=== PATIENT | female | born 1990 | race Caucasian/White ===

== ENCOUNTER 2020-01-06 03:07 | Inpatient (IN) | payer BC ==
[2020-01-06] MEDS ORDERED: Methylergonovine 0.2 MG/1 ML Amp IM PRN (03:36)
[2020-01-06] MEDS ORDERED: Carboprost Tromethamine 250 MCG/1 ML Amp IM PRN (03:36)
[2020-01-06] MEDS ORDERED: Tranexamic Acid 1,000 MG in Sodium Chloride 0.9% 100 ML IV PRN (03:36)
[2020-01-06] MEDS ORDERED: Butorphanol 1 MG/ML SDV IVPUSH PRN (03:36)
[2020-01-06] MEDS ORDERED: Lidocaine 1% 50 ML MDV INJECT PRN (03:36)
[2020-01-06] MEDS ORDERED: Sodium Chloride 0.9% 10 ML SDV IV PRN (03:36)
[2020-01-06] MEDS ORDERED: Sodium Chloride 0.9% 10 ML Syringe FLUSH PRN (03:36)
[2020-01-06] MEDS ORDERED: Sodium Chloride 0.9% 2.5 ML Syringe FLUSH PRN (03:36)
[2020-01-06] MEDS ORDERED: Nalbuphine 10 MG/1 ML Vial IVPUSH PRN (03:36)
[2020-01-06] MEDS ORDERED: Misoprostol 200 MCG Tab PO PRN (03:36)
[2020-01-06] MEDS ORDERED: Water For Irrigation,Sterile 1,000 ML Container IRR PRN (03:36)
[2020-01-06] MEDS ORDERED: Oxytocin/0.9 % Sodium Chloride 30 UNIT/500 ML BAG IV SCH (03:45)
[2020-01-06] MEDS: Lactated Ringers 1,000 ML IV SCH ×3 (03:51→04:57)
[2020-01-06] MEDS ORDERED: Ampicillin 2 GM in Sodium Chloride 0.9% 100 ML IV ONE (04:00)
[2020-01-06] MEDS ORDERED: Ropivacaine HCl/PF 100 ML ONE (04:18)
[2020-01-06] MEDS ORDERED: fentaNYL 100 MCG/2 ML SDV ONE (04:18)
--- NOTE | 2020-01-06 04:39 | PCM.PREANE ---
Preanesthetic Assessment - Anesthesia/Transfusion/Family Hx Anesthesia History: Prior Anesthesia Without Reaction Family History of Anesthesia Reaction: No Transfusion History: No Prior Transfusion(s) Intubation History: Unknown - Physical Assessment NPO Status Date: 01/06/20 NPO Status Time: 00:05 Height: 1.63 m Weight: 77.111 kg - Lab Values: Laboratory Last Values WBC 11.60 K/uL (4.0-11.0) H 01/06/20 03:45 RBC 4.33 M/uL (4.30-5.90) 01/06/20 03:45 Hgb 10.5 g/dL (12.0-16.0) L 01/06/20 03:45 Hct 33.8 % (36.0-46.0) L 01/06/20 03:45 MCV 78.1 fL (80.0-98.0) L 01/06/20 03:45 MCH 24.2 pg (27.0-32.0) L 01/06/20 03:45 MCHC 31.1 g/dL (31.0-37.0) 01/06/20 03:45 RDW Std Deviation 43.0 fl (28.0-62.0) 01/06/20 03:45 RDW Coeff of Yady 15 % (11.0-15.0) 01/06/20 03:45 Plt Count 189 K/uL (150-400) 01/06/20 03:45 MPV 12.50 fL (7.40-12.00) H 01/06/20 03:45 Nucleated RBC % 0.0 /100WBC 01/06/20 03:45 Nucleated RBCs # 0 K/uL 01/06/20 03:45 Membrane Rupture POSITIVE 01/06/20 03:20 - Allergies Allergies/Adverse Reactions: Allergies Allergy/AdvReac Type Severity Reaction Status Date / Time No Known Allergies Allergy Verified 01/06/20 03:33 - Acknowledgements Anesthesia Type Planned: Epidural Pt an Appropriate Candidate for the Planned Anesthesia: Yes Alternatives and Risks of Anesthesia Discussed w Pt/Guardian: Yes Pt/Guardian Understands and Agrees with Anesthesia Plan: Yes PreAnesthesia Questionnaire HEENT History: Reports: Impaired Vision [place] History: Reports: Musculoskeletal History: Reports: None Psychiatric History: Reports: Anxiety, Depression - Past Surgical History HEENT Surgical History: Reports: Oral Surgery Musculoskeletal Surgical History: Reports: Other (See Below) Other Musculoskeletal Surgeries/Procedures:: surgery on right index finger - SUBSTANCE USE Smoking Status *Q: Former Smoker Tobacco Use Within Last Twelve Months: Cigarettes Recreational Drug Use History: No - HOME MEDS Home Medications: Home Meds Escitalopram Oxalate [Lexapro] 20 mg PO DAILY 01/06/20 [History] Terconazole 01/06/20 [History] valACYclovir HCl [Valtrex] 1 tab PO BID 01/06/20 [History] - CURRENT (IN HOUSE) MEDS Current Meds: Current Medications Butorphanol Tartrate (Stadol) 1 mg IVPUSH Q1H PRN PRN Reason: Pain Carboprost Tromethamine (Hemabate Ds) 250 mcg IM ASDIRECTED PRN PRN Reason: Post Hemorrhage Ampicillin Sodium 1 gm/ Sodium (Chloride) 50 mls @ 100 mls/hr IV Q4H [facility] Lactated Ringer's (Ringers, Lactated) 1,000 mls @ 150 mls/hr IV ASDIRECTED [facility] Last Admin: 01/06/20 04:29 Dose: 999 mls/hr Oxytocin/Sodium Chloride (Oxytocin 30 Unit/500 Ml-Ns) 30 unit in 500 mls @ 999 mls/hr IV TITRATE [facility] Tranexamic Acid 1,000 mg/ (Sodium Chloride) 110 mls @ 660 mls/hr IV ONETIME PRN PRN Reason: Bleeding Lidocaine HCl (Xylocaine 1%) 50 ml INJECT ONETIME PRN PRN Reason: Laceration repair Methylergonovine Maleate (Methergine) 0.2 mg IM ASDIRECTED PRN PRN Reason: Post Hemorrhage Misoprostol (Cytotec) 200 mcg PO ONETIME PRN PRN Reason: Post Hemorrhage Nalbuphine HCl (Nubain) 10 mg IVPUSH Q1H PRN PRN Reason: Pain (severe 7-10) Sodium Chloride (Saline Flush) 10 ml FLUSH ASDIRECTED PRN PRN Reason: Keep Vein Open Sodium Chloride (Saline Flush) 2.5 ml FLUSH ASDIRECTED PRN PRN Reason: Keep Vein Open Sodium Chloride (Normal Saline) 10 ml IV ASDIRECTED PRN PRN Reason: IV Use Sterile Water (Sterile Water For Irrigation) 1,000 ml IRR ASDIRECTED PRN PRN Reason: delivery Discontinued Medications Fentanyl (Sublimaze) Confirm Administered Dose 100 mcg .ROUTE .STK-MED ONE Stop: 01/06/20 04:19 Ampicillin Sodium 2 gm/ Sodium (Chloride) 100 mls @ 200 mls/hr IV ONETIME ONE Stop: 01/06/20 04:29 Last Admin: 01/06/20 03:54 Dose: 200 mls/hr Ropivacaine (Naropin 0.2%) Confirm Administered Dose 100 mls @ as directed .ROUTE .STK-MED ONE Stop: 01/06/20 04:19
--- NOTE | 2020-01-06 04:43 | PCM.PRNOTE ---
- Free Text/Narrative Note: Anes NOte Patient requests epidural for L&D. Sitting position, Level L3-L4 midline approach. Sterile technique. Chloraprep scrub to lumbar area. Sterile fenestrated drape applied. Epidural space easily achieved single attempt with ease using WILLARD technique. WILLARD at 3 cm. Cath threaded 5 cm with ease. Cath secured a tskin at 9 cm using sterile clear adhesive dressing. 0425 Test 3 cc 1.5% lido with epi negative. 0430 Load 10 cc 0.2% ropivicaine with 1 mcg cc fentanyl in slow divided doses. 0435 Pump started with 90 cc same solution. Rate is 8 cc hr with 6 cc q 20 min prn bolus. Darnell well. Time with patient [id number] Bob Roque CRNA
[2020-01-06] MEDS ORDERED: Bisacodyl 10 MG Supp RECTAL PRN (07:36)
[2020-01-06] MEDS ORDERED: Docusate Sodium 100 MG Cap PO PRN (07:36)
[2020-01-06] MEDS ORDERED: Lanolin 100% Cream 7 GM Tube TOP PRN (07:36)
[2020-01-06] MEDS ORDERED: oxyCODONE 5 MG Tab PO PRN (07:36)
[2020-01-06] MEDS ORDERED: Witch Hazel Medicated Pads 40/Jar TOP PRN (07:36)
[2020-01-06] MEDS ORDERED: Ibuprofen 800 MG Tab PO PRN (07:36)
[2020-01-06] MEDS ORDERED: Benzocaine/Menthol 20%-0.5% Spray 78 GM Cannister TOP PRN (07:36)
--- NOTE | 2020-01-06 07:41 | PCM.DEL ---
L & D Note - General Info Date of Service: 01/06/20 Mother's Due Date: 01/09/20 - Delivery Note Labor: Spontaneous Delivery Outcome: Livebirth Infant Delivery Method: Spontaneous Vaginal Delivery-Single Presentation: Vertex Nuchal Cord: None Anesthesia Type: Epidural Amniotic Fluid Description: Meconium Stained Episiotomy Type: None Laceration: None Placenta: Intact, Spontaneous Cord: 3 Vessels Resuscitation Needed: Yes : Suctioned, Stimulated, Warmed, Warmer Used Score 1 min: 7 Score 5 min: 9 - General Info Date of Service: 01/06/20 - Patient Data Weight - Most Recent: 77.111 kg Lab Results Last 24 Hours: Laboratory Results - last 24 hr 01/06/20 01/06/20 01/06/20 Range/Units 03:20 03:45 03:45 WBC 11.60 H (4.0-11.0) K/uL RBC 4.33 (4.30-5.90) M/uL Hgb 10.5 L (12.0-16.0) g/dL Hct 33.8 L (36.0-46.0) % MCV 78.1 L (80.0-98.0) fL MCH 24.2 L (27.0-32.0) pg MCHC 31.1 (31.0-37.0) g/dL RDW Std Deviation 43.0 (28.0-62.0) fl RDW Coeff of Yady 15 (11.0-15.0) % Plt Count 189 (150-400) K/uL MPV 12.50 H (7.40-12.00) fL Nucleated RBC % 0.0 /100WBC Nucleated RBCs # 0 K/uL Membrane Rupture POSITIVE Blood Type O POSITIVE Antibody Screen NEGATIVE Med Orders - Current: Current Medications Acetaminophen (Tylenol Extra Strength) 1,000 mg PO Q6H PRN PRN Reason: Pain Benzocaine/Menthol (Dermoplast Pain Relief 20%-0.5% [place]) 78 gm TOP ASDIRECTED PRN PRN Reason: Perineal Comfort Measure Bisacodyl (Dulcolax) 10 mg RECTAL ONETIME PRN PRN Reason: Constipation Butorphanol Tartrate (Stadol) 1 mg IVPUSH Q1H PRN PRN Reason: Pain Carboprost Tromethamine (Hemabate Ds) 250 mcg IM ASDIRECTED PRN PRN Reason: Post Hemorrhage Docusate Sodium (Colace) 100 mg PO BID PRN PRN Reason: Constipation Emollient Ointment (Lansinoh Hpa) 0 gm TOP ASDIRECTED PRN PRN Reason: Sore Nipples Ampicillin Sodium 1 gm/ Sodium (Chloride) 50 mls @ 100 mls/hr IV Q4H [facility] Lactated Ringer's (Ringers, Lactated) 1,000 mls @ 150 mls/hr IV ASDIRECTED [facility] Last Admin: 01/06/20 04:57 Dose: 150 mls/hr Oxytocin/Sodium Chloride (Oxytocin 30 Unit/500 Ml-Ns) 30 unit in 500 mls @ 999 mls/hr IV TITRATE [facility] Last Admin: 01/06/20 06:58 Dose: 999 mls/hr Tranexamic Acid 1,000 mg/ (Sodium Chloride) 110 mls @ 660 mls/hr IV ONETIME PRN PRN Reason: Bleeding Ibuprofen (Motrin) 800 mg PO Q8H PRN PRN Reason: Pain Lidocaine HCl (Xylocaine 1%) 50 ml INJECT ONETIME PRN PRN Reason: Laceration repair Methylergonovine Maleate (Methergine) 0.2 mg IM ASDIRECTED PRN PRN Reason: Post Hemorrhage Misoprostol (Cytotec) 200 mcg PO ONETIME PRN PRN Reason: Post Hemorrhage Nalbuphine HCl (Nubain) 10 mg IVPUSH Q1H PRN PRN Reason: Pain (severe 7-10) Non-Formulary Medication (Escitalopram Oxalate) 20 mg PO DAILY [facility] Oxycodone HCl (Oxycodone) 5 mg PO Q2H PRN PRN Reason: Pain Sodium Chloride (Saline Flush) 10 ml FLUSH ASDIRECTED PRN PRN Reason: Keep Vein Open Sodium Chloride (Saline Flush) 2.5 ml FLUSH ASDIRECTED PRN PRN Reason: Keep Vein Open Sodium Chloride (Normal Saline) 10 ml IV ASDIRECTED PRN PRN Reason: IV Use Sterile Water (Sterile Water For Irrigation) 1,000 ml IRR ASDIRECTED PRN PRN Reason: delivery Last Admin: 01/06/20 07:03 Dose: 1,000 ml Witch Becky (Tucks) 1 pad TOP ASDIRECTED PRN PRN Reason: comfort care Discontinued Medications Fentanyl (Sublimaze) Confirm Administered Dose 100 mcg .ROUTE .STK-MED ONE Stop: 01/06/20 04:19 Last Admin: 01/06/20 04:47 Dose: Not Given Ampicillin Sodium 2 gm/ Sodium (Chloride) 100 mls @ 200 mls/hr IV ONETIME ONE Stop: 01/06/20 04:29 Last Admin: 01/06/20 03:54 Dose: 200 mls/hr Ropivacaine (Naropin 0.2%) Confirm Administered Dose 100 mls @ as directed .ROUTE .STK-MED ONE Stop: 01/06/20 04:19 Last Admin: 01/06/20 04:46 Dose: Not Given - Problem List & Annotations (1) Vaginal delivery SNOMED Code(s): 612308631 Code(s): O80 - ENCOUNTER FOR FULL-TERM UNCOMPLICATED DELIVERY Status: Acute Current Visit: No - Problem List Review Problem List Initiated/Reviewed/Updated: Yes - My Orders Last 24 Hours: My Active Orders 01/06/20 03:11 Patient Status [ADT] Routine 01/06/20 03:36 Heart Tones [RC] CONTINUOUS Non Stress Test [RC] PER UNIT ROUTINE May Shower [RC] ASDIRECTED Notify Provider [RC] PRN Up ad Valeria [RC] ASDIRECTED Vaginal Exam [RC] PRN Vital Signs [RC] PER UNIT ROUTINE Butorphanol [Stadol] 1 mg IVPUSH Q1H PRN Carboprost Tromethamine [Hemabate DS] 250 mcg IM ASDIRECTED PRN Lidocaine 1% [Xylocaine 1%] 50 ml INJECT ONETIME PRN Methylergonovine [Methergine] 0.2 mg IM ASDIRECTED PRN Nalbuphine [Nubain] 10 mg IVPUSH Q1H PRN Sodium Chloride 0.9% [Normal Saline] 10 ml IV ASDIRECTED PRN Sodium Chloride 0.9% [Saline Flush] 10 ml FLUSH ASDIRECTED PRN Sodium Chloride 0.9% [Saline Flush] 2.5 ml FLUSH ASDIRECTED PRN Tranexamic Acid [Cyklokapron] 1,000 mg Sodium Chloride 0.9% [Normal Saline] 100 ml IV ONETIME Water For Irrigation,Sterile [Sterile Water for Irrigation] 1,000 ml IRR ASDIRECTED PRN miSOPROStoL [Cytotec] 200 mcg PO ONETIME PRN Scalp Electrode [WOMSER] Per Unit Routine Peripheral IV Insertion Adult [OM.PC] Routine Resuscitation Status Routine 01/06/20 03:45 RPR (SYPHILIS SERO) W/ RFLX [REF] Routine Lactated Ringers [Ringers, Lactated] 1,000 ml IV ASDIRECTED Oxytocin/0.9 % Sodium Chloride [Oxytocin 30 Unit/500 ML-NS] 30 unit in 500 ml IV TITRATE 01/06/20 07:36 Patient Status [ADT] Routine May Shower [RC] ASDIRECTED Notify Provider Vital Signs [RC] ASDIRECTED Up ad Valeria [RC] ASDIRECTED Vital Signs [RC] PER UNIT ROUTINE Acetaminophen [Tylenol Extra Strength] 1,000 mg PO Q6H PRN Benzocaine/Menthol [Dermoplast Pain Relief 20%-0.5% [place]] 78 gm TOP ASDIRECTED PRN Docusate Sodium [Colace] 100 mg PO BID PRN Ibuprofen [Motrin] 800 mg PO Q8H PRN Lanolin [Lansinoh HPA] See Dose Instructions TOP ASDIRECTED PRN bisacodyL [Dulcolax] 10 mg RECTAL ONETIME PRN oxyCODONE 5 mg PO Q2H PRN witch Becky [Tucks] 1 pad TOP ASDIRECTED PRN Assess Lochia [WOMSER] Per Unit Routine Assess Uterine Involution [WOMSER] Per Unit Routine Breast Pump [WOMSER] Per Unit Routine Ice Therapy [OM.PC] Per Unit Routine Perineal Care [OM.PC] Per Unit Routine Peripheral IV Discontinue [OM.PC] Routine Sitz Bath [OM.PC] Per Unit Routine 01/06/20 07:37 Cooling Warming Measures [RC] ASDIRECTED BLOOD GAS VENOUS UMBILICAL [BG] Routine 01/06/20 08:00 Ampicillin 1 gm Sodium Chloride 0.9% [Normal Saline] 50 ml IV Q4H 01/06/20 09:00 Escitalopram Oxalate 20 mg PO DAILY 01/06/20 Breakfast Regular Diet [DIET] 01/07/20 05:11 HEMOGLOBIN/HEMATOCRIT,HH [HEME] Timed - Assessment Assessment:: 29yo s/p at 39w4d - Plan Plan:: Admit to unit for routine care. GBS+, did not receive adequate prophylaxis. Patient aware infant may be monitored for 48 hours . Depression/anxiety, continue home medication.
[2020-01-06] MEDS ORDERED: Escitalopram 10 MG Tab PO SCH (09:00)
[2020-01-06] MEDS: Acetaminophen 500 MG Tab PO PRN (15:26)
--- NOTE | 2020-01-06 15:35 | OR ---
SURGEON: Mell Mchugh MD DATE OF PROCEDURE: 01/06/2020 PREOPERATIVE DIAGNOSES: 1. A 29-year-old G3, P2-0-0-2 at 39 weeks and 4 days gestation. 2. Labor. 3. GBS positive. POSTOPERATIVE DIAGNOSES: 1. 29-year-old, G3, P3-0-0-3, status post spontaneous vaginal delivery at 39 weeks and 4 days gestation. 2. Group B Streptococcus positive. PROCEDURE: Spontaneous vaginal delivery. ANESTHESIA: Epidural. PRIMARY SURGEON: Mell Mchugh MD ESTIMATED BLOOD LOSS: 200 mL. FINDINGS: Live male infant in cephalic presentation. score 7 and 9 at one and five minutes respectively. Thick meconium. Weight pending. Venous blood gas pending. Placenta intact with 3-vessel cord. No perineal lacerations. INDICATIONS: This is a 29-year-old G3, P2-0-0-2, who presented at 39 weeks and 4 days gestation complaining of contractions and leakage of fluid. AmniSure was positive on presentation. Her cervix was found to be 6 cm dilated. She received an epidural for pain control. She progressed to complete cervical dilation. She received 1 dose of Ampicillin prior to delivery. PROCEDURE IN DETAIL: I presented to the room, the patient was complete and +1 station. She pushed and delivered a live male infant. Head was delivered followed quickly by the shoulders and remainder of the body. The infant was placed on maternal abdomen. After approximately 60 seconds, cord was clamped and cut. Perineum was inspected and no lacerations were noted. At 29 minutes post delivery, the placenta delivered via the De Leon-Trejo maneuver intact and with 3-vessel cord. Fundus was firm below the umbilicus with minimal bleeding. The patient and tolerated the delivery well. [id number] / MODL /[id number] JOSHUA
[2020-01-07] MEDS: Acetaminophen 500 MG Tab PO PRN (05:15)
[2020-01-07] MEDS: Ampicillin 1 GM in Sodium Chloride 0.9% 50 ML IV SCH (08:40)
--- NOTE | 2020-01-07 08:47 | PCM.PNPP ---
- General Info Date of Service: 01/07/20 Functional Status: Reports: Pain Controlled, Tolerating Diet, Ambulating, Urinating - Review of Systems General: Denies: Fever, Weakness, Fatigue Pulmonary: Denies: Shortness of Breath Cardiovascular: Denies: Chest Pain, Palpitations, Lightheadedness Gastrointestinal: Denies: Abdominal Pain, Nausea, Vomiting Genitourinary: Denies: Flank Pain Skin: Reports: No Symptoms Neurological: Reports: No Symptoms Psychiatric: Reports: No Symptoms - General Info Date of Service: 01/07/20 - Patient Data Vital Signs - Most Recent: Last Vital Signs Temp 35.8 C L 01/07/20 04:53 Pulse 74 01/07/20 04:53 Resp 15 01/07/20 04:53 BP 104/78 01/07/20 06:30 Pulse Ox 95 01/07/20 04:53 Weight - Most Recent: 77.111 kg Lab Results - Last 24 Hours: Laboratory Results - last 24 hr 01/07/20 Range/Units 05:16 Hgb 10.4 L (12.0-16.0) g/dL Hct 34.3 L (36.0-46.0) % Med Orders - Current: Current Medications Acetaminophen (Tylenol Extra Strength) 1,000 mg PO Q6H PRN PRN Reason: Pain Last Admin: 01/07/20 05:15 Dose: 1,000 mg Benzocaine/Menthol (Dermoplast Pain Relief 20%-0.5% [place]) 78 gm TOP ASDIRECTED PRN PRN Reason: Perineal Comfort Measure Last Admin: 01/06/20 08:53 Dose: 1 spray Bisacodyl (Dulcolax) 10 mg RECTAL ONETIME PRN PRN Reason: Constipation Butorphanol Tartrate (Stadol) 1 mg IVPUSH Q1H PRN PRN Reason: Pain Carboprost Tromethamine (Hemabate Ds) 250 mcg IM ASDIRECTED PRN PRN Reason: Post Hemorrhage Docusate Sodium (Colace) 100 mg PO BID PRN PRN Reason: Constipation Emollient Ointment (Lansinoh Hpa) 0 gm TOP ASDIRECTED PRN PRN Reason: Sore Nipples Last Admin: 01/06/20 08:53 Dose: 1 gm Escitalopram Oxalate (Lexapro) 20 mg PO DAILY [facility] Last Admin: 01/06/20 08:50 Dose: 20 mg Ampicillin Sodium 1 gm/ Sodium (Chloride) 50 mls @ 100 mls/hr IV Q4H [facility] Last Admin: 01/07/20 08:40 Dose: Not Given Lactated Ringer's (Ringers, Lactated) 1,000 mls @ 150 mls/hr IV ASDIRECTED [facility] Last Admin: 01/06/20 04:57 Dose: 150 mls/hr Oxytocin/Sodium Chloride (Oxytocin 30 Unit/500 Ml-Ns) 30 unit in 500 mls @ 999 mls/hr IV TITRATE [facility] Last Admin: 01/06/20 06:58 Dose: 999 mls/hr Tranexamic Acid 1,000 mg/ (Sodium Chloride) 110 mls @ 660 mls/hr IV ONETIME PRN PRN Reason: Bleeding Ibuprofen (Motrin) 800 mg PO Q8H PRN PRN Reason: Pain Last Admin: 01/06/20 21:52 Dose: 800 mg Lidocaine HCl (Xylocaine 1%) 50 ml INJECT ONETIME PRN PRN Reason: Laceration repair Methylergonovine Maleate (Methergine) 0.2 mg IM ASDIRECTED PRN PRN Reason: Post Hemorrhage Misoprostol (Cytotec) 200 mcg PO ONETIME PRN PRN Reason: Post Hemorrhage Nalbuphine HCl (Nubain) 10 mg IVPUSH Q1H PRN PRN Reason: Pain (severe 7-10) Oxycodone HCl (Oxycodone) 5 mg PO Q2H PRN PRN Reason: Pain Sodium Chloride (Saline Flush) 10 ml FLUSH ASDIRECTED PRN PRN Reason: Keep Vein Open Sodium Chloride (Saline Flush) 2.5 ml FLUSH ASDIRECTED PRN PRN Reason: Keep Vein Open Sodium Chloride (Normal Saline) 10 ml IV ASDIRECTED PRN PRN Reason: IV Use Sterile Water (Sterile Water For Irrigation) 1,000 ml IRR ASDIRECTED PRN PRN Reason: delivery Last Admin: 01/06/20 07:03 Dose: 1,000 ml Witch Becky (Tucks) 1 pad TOP ASDIRECTED PRN PRN Reason: comfort care Last Admin: 01/06/20 08:52 Dose: 1 pad Discontinued Medications Fentanyl (Sublimaze) Confirm Administered Dose 100 mcg .ROUTE .STK-MED ONE Stop: 01/06/20 04:19 Last Admin: 01/06/20 04:47 Dose: Not Given Ampicillin Sodium 2 gm/ Sodium (Chloride) 100 mls @ 200 mls/hr IV ONETIME ONE Stop: 01/06/20 04:29 Last Admin: 01/06/20 03:54 Dose: 200 mls/hr Ropivacaine (Naropin 0.2%) Confirm Administered Dose 100 mls @ as directed .ROUTE .STK-MED ONE Stop: 01/06/20 04:19 Last Admin: 01/06/20 04:46 Dose: Not Given - Infant Interaction Support Person: Significant Other - Recovery Exam Fundal Tone: Firm Fundal Level: 1 Fingerbreadths Below Umbilicus Fundal Placement: Midline Lochia Amount: Scant Lochia Color: Rubra/Red Bladder Status: Voiding - Exam General: Alert, Oriented Lungs: Normal Respiratory Effort Cardiovascular: Regular Rate, Regular Rhythm GI/Abdominal Exam: Normal Bowel Sounds, Soft Extremities: Normal Range of Motion, Pedal Edema (trace). No: Cintia's Sign Skin: Warm, Dry, Intact Neurological: No New Focal Deficit Psy/Mental Status: Alert, Normal Affect, Normal Mood - Problem List & Annotations (1) Vaginal delivery SNOMED Code(s): 508120092 Code(s): O80 - ENCOUNTER FOR FULL-TERM UNCOMPLICATED DELIVERY Status: Acute Current Visit: No - Problem List Review Problem List Initiated/Reviewed/Updated: Yes - My Orders Last 24 Hours: My Active Orders 01/07/20 08:45 Ready for Discharge [RC] PER UNIT ROUTINE - Assessment Assessment:: 29yo s/p at 39w4d PPD 1 - Plan Plan:: Patient doing well overall, would like to go home today. Discharge to home. Follow up at [facility] 6 weeks. Infection and bleeding warnings reviewed.
--- NOTE | 2020-01-07 08:50 | PCM48HPAN ---
Post Anesthesia Note - EVALUATION WITHIN 48HRS OF ANESTHETIC Vital Signs in Normal Range: Yes Patient Participated in Evaluation: Yes Respiratory Function Stable: Yes Airway Patent: Yes Cardiovascular Function Stable: Yes Hydration Status Stable: Yes Pain Control Satisfactory: Yes Nausea and Vomiting Control Satisfactory: Yes Mental Status Recovered: Yes Vital Signs: Last Vital Signs Temp 35.8 C L 01/07/20 04:53 Pulse 74 01/07/20 04:53 Resp 15 01/07/20 04:53 BP 104/78 01/07/20 06:30 Pulse Ox 95 01/07/20 04:53
== END 2020-01-07 09:55 | disposition home or self-care (01) | DRG 560 ==
LOC: MW.OBCHECK 03:07 → MW.OB 03:08 → MW.OBCHECK 03:11 → OBSVTOIN 06:57 → MW.OB 11:16
PROVIDERS: ADMIT Obstetrics & Gynecology; ATTEND Obstetrics & Gynecology
PROC: 10E0XZZ Delivery of Products of Conception, External Approach (ICD-10-PCS; principal; 2020-01-06)
PROC: 3E0R3BZ Introduction of Anesthetic Agent into Spinal Canal, Percutaneous Approach (ICD-10-PCS; 2020-01-06)
PROC: 00HU33Z Insertion of Infusion Device into Spinal Canal, Percutaneous Approach (ICD-10-PCS; 2020-01-06)
DX: O99.344 Other mental disorders complicating childbirth (principal); Z37.0 Single live birth; Z3A.39 39 weeks gestation of pregnancy; F41.9 Anxiety disorder, unspecified; O99.824 Streptococcus B carrier state complicating childbirth; F32.9 Major depressive disorder, single episode, unspecified; O77.0 Labor and delivery complicated by meconium in amniotic fluid; Z87.891 Personal history of nicotine dependence
CPT/HCPCS: 36415; 51702; 59025; 59409; 82803; 84112; 85014; 85018; 85027; 86592; 86593; 86850; 86900; 86901; A9270-GY; J0290; J2590; J2795; J3010; J7050; J7120

== ENCOUNTER 2021-07-27 10:16 | Emergency (ER) | payer BC, OTHER ==
[2021-07-27] MEDS ORDERED: Ondansetron 4 MG/2 ML SDV IVPUSH ONE (10:27)
[2021-07-27] MEDS ORDERED: Sodium Chloride 0.9% 1,000 ML IV ONE (10:27)
--- NOTE | 2021-07-27 11:05 | CR ---
INDICATION: cough TECHNIQUE: Chest 1 view. COMPARISON: None. FINDINGS: Cardiovascular and mediastinum: Heart size and vasculature are normal in caliber and appearance. Mediastinum is within normal limits. Lungs and pleural space: Lungs are clear. No sign of infiltrate or mass. No sign of pleural effusion. No pneumothorax. Bones and soft tissues: No significant findings. IMPRESSION: Unremarkable chest. Dictated by: Akin Blake MD @ 07/27/2021 11:04:24 (Electronically Signed)
[2021-07-27 11:18] LABS: BLOOD UREA NITROGEN,BUN 11 mg/dL (7.0-18.0); CARBON DIOXIDE,CO2 26.6 mmol/L (21.0-32.0); CHLORIDE,CL 103 mmol/L (98-107); GLUCOSE RANDOM 113 mg/dL (74-106); LIPASE 85 U/L (73-393); POTASSIUM,K 3.6 mmol/L (3.5-5.1); SODIUM,NA 142 mmol/L (136-145)
[2021-07-27] MEDS ORDERED: Iopamidol 755 MG/ML 500 ML Multipack Bottle IVPUSH STA (11:59)
[2021-07-27 12:04] LABS: CORONAVIRUS COVID-19 NAA NEGATIVE (NEGATIVE); INFLUENZA A NAA NEGATIVE (NEGATIVE); INFLUENZA B NAA NEGATIVE (NEGATIVE)
--- NOTE | 2021-07-27 12:45 | CT ---
INDICATION: Nausea, vomiting, generalized abdominal pain. TECHNIQUE: CT of the abdomen and pelvis with 100 cc Isovue 370 IV contrast. Coronal and sagittal reconstructions. COMPARISON: None. FINDINGS: Small low-attenuation lesion in the anterior aspect of the hepatic dome is too small to characterize but likely benign (series 201, image 31). The gallbladder, spleen, pancreas, and adrenal glands are negative. No biliary dilation. Hepatic and portal veins are patent. Symmetric enhancement of the kidneys. No hydronephrosis or ureteral dilation. No obstructing urinary calculi identified. The bladder and uterus are normal in appearance. There is a 1.5 cm rim enhancing cystic lesion in the right adnexa which most likely represents a corpus luteum (series 201, image 142). No bowel dilation. Mild amount of formed stool within the proximal colon. The distal colon is decompressed which limits evaluation, however there are no significant signs of inflammation. Negative appendix. Small amount of free fluid in the right adnexa. No intraperitoneal free air. Tiny fat containing umbilical hernia. No lymphadenopathy. The bones are unremarkable. The lung bases are clear. IMPRESSION: 1. No acute findings in the abdomen or pelvis. 2. Probable 1.5 cm corpus luteum in the right ovary with a small amount of adjacent free fluid. Please note that all CT scans at this facility use dose modulation, iterative reconstruction, and/or weight-based dosing when appropriate to reduce radiation dose to as low as reasonably achievable. Dictated by Tammi Dumont MD @ 07/27/2021 12:43:48 PM (Electronically Signed)
[2021-07-27] MEDS ORDERED: Phenazopyridine 200 MG Tab PO ONE (13:00)
== END 2021-07-27 13:26 | disposition home or self-care (01) ==
LOC: MW.ED 10:16
DX: N30.00 Acute cystitis without hematuria (principal); Z20.822 Contact with and (suspected) exposure to COVID-19
CPT/HCPCS: 0240U; 36415; 71045; 74177; 80053; 81001; 81025; 83690; 85025; 96374; 99284; A9270; J2405; J7030; Q9967